=== PATIENT | male | born 1965 | race Caucasian/White ===

== ENCOUNTER 2019-04-03 09:23 | Emergency (ER) | payer MEDICARE, SELFPAY ==
[2019-04-03 09:24] VITALS: BP 169/93; PULSE 83; RESP 17; TEMP 36.5; O2SAT 100
[2019-04-03] MEDS: 0.9% Normal Saline 1,000 ML 1000 ML IV (10:07)
[2019-04-03] MEDS: proMETHazine 25 MG/ML Syringe 6.25 MG IV (10:07)
[2019-04-03] MEDS: HYDROmorphone 1 MG/ML Syringe 0.5 MG IV (10:08)
[2019-04-03 10:34] LABS: Absolute Lymphocyte Count 1.33 X10^3/uL (0.83-4.51); Absolute Neutrophil Count 4.2 X10^3/uL (2.0-7.7); Basophil# 0.05 X10^3/uL; Basophil% 0.8 % (0-1); Eosinophil# 0.18 X10^3/uL; Eosinophils% 2.8 % (0-5); Hemoglobin 12.6 g/dL (13.0-16.5); Lymphocyte # 1.33 X10^3/ul (4.0); Lymphocyte % 20.8 % (19-41); Mean Corp Hgb Conc 33.2 g/dL (32-36); Mean Corpuscular Volume 99.5 fL (80-94); Mean Platelet Vol. 9.9 fl (6.2-12.0); Monocyte# 0.59 X10^3/uL; Monocyte% 9.2 % (0-10); NRBC Flagged by Analyzer 0 % (0-5); Neutrophil # 4.21 X10^3/uL (2.7-7.7); Neutrophil % 66.1 % (47-70); Platelet Count 208 K/mm3 (150-450); RBC Distribution Width CV 12.8 % (11.6-14.6); RBC Distribution Width SD 47.5 fl (35.1-43.9); Red Blood Count 3.82 M/mm3 (4.6-6.2); White Blood Count 6.4 K/mm3 (4.4-11.0)
[2019-04-03 10:37] LABS: AST(SGOT) 22 U/L (15-37); Alanine Aminotransfer ALT/SGPT 27 U/L (16-61); Albumin, Serum 3.7 g/dL (3.2-5.0); Alkaline Phosphatase 88 U/L (45-117); Anion Gap 5 (5-15); BUN 16 mg/dL (7-18); BUN/Creat Ratio 17.6 RATIO (10-20); Calcium,Total 8.5 mg/dL (8.5-10.1); Chloride 106 mmol/L (98-107); Creatinine, Serum 0.91 mg/dL (0.70-1.30); EST Glomerular Filtration Rate 92 mL/min (>60); Est Glom Filt Rate - Afr Amer 112 mL/min (>60); Estimated Creatinine Clearance 85.45 ml/min; Globulin 3.7 g/dL (2.2-4.2); Glucose 113 mg/dL (74-106); Lipase 149 U/L (73-393); Potassium 3.8 mmol/L (3.5-5.1); Protein, Total 7.4 g/dL (6.4-8.2); Sodium Level 139 mmol/L (136-145)
[2019-04-03 10:48] LABS: Lactic Acid 1.6 mmol/L (0.4-2.0)
--- NOTE | 2019-04-03 11:09 | ED.DCSUM_ITS ---
- ER Visit Summary Date of Service: 04/03/19 Chief Complaint: [Abdominal pain] History of Present Illness: The patient is a 54 M [presents to the emergency department complaint of abdominal pain over the last 2 days. Patient describes the pain as sharp and stabbing in the upper abdomen. He has had nausea but no vomiting. Patient was seen in urgent care this morning and was referred to the emergency department. Patient states that he has a history of chronic diarrhea. He denies any blood in his stool or black tarry stools. He denies any fevers. Patient denies any chest pain or shortness of breath. Patient's significant other states that the entire family has had recent illness involving vomiting and diarrhea. Patient had prior appendectomy and cholecystectomy.] Patient has history of remote pancreatitis and chronic abdominal pain. Physical Examination: HEENT-PERRLA, EOMI. Cranial nerves II through XII grossly intact. TMs clear. Mucous membranes moist. No adenopathy. Cardiovascular-regular rate and rhythm without murmur or ectopy Lungs-clear to auscultation, chest wall stable without crepitus or subcu emphysema Abdomen-normoactive bowel sounds, soft. Patient has tenderness palpation diffusely over the epigastric region with some guarding. There is no rebound, rigidity, or perineal signs. There is no distention. Extremities-intact ?4, normal range of motion, normal pulses, atraumatic] Test Results: [CBC with differential obtained showed a normal white count of 6.4, hemoglobin 12.6, hematocrit 38, platelets 208. Chemistries unremarkable. LFTs were normal. Lipase was 149.] Emergency Department Course and Treatment: Patient was given a liter normal same fluid bolus. Patient was given Phenergan 6.25 mill grams IV. Patient was given half a milligram of Dilaudid. He did feel improved. [] Treatment Plan: [Will be given a prescription for Phenergan and advised to push fluids. Patient advised to follow-up with primary care physician in 3 to 5 days. Patient to return if fever, worsening pain, vomiting, or condition should worsen anyway.] Disposition: [Discharged home in stable condition.] Impression: [Abdominal pain-suspect viral etiology] This note was generated with [employer] software. It may contain incorrect words, spelling, and punctuation that were not noted in review of the chart prior to signing ED Disposition - Plan for ED Patient: Referrals: Antonio Lee DO [Primary Care Provider] -
--- NOTE | 2019-04-03 11:12 | ED.DEP ---
ED Disposition - Plan for ED Patient: Instructions: ABDOMINAL PAIN, Unkown Cause, (Male) Prescriptions: proMETHazine tablet [Phenergan] 25 mg PO Q6H PRN PRN #10 tab PRN Reason: Nausea Prescription Printed Referrals: Antonio Lee DO [Primary Care Provider] - 3-5 Days
[2019-04-03 11:19] VITALS: BP 145/89; PULSE 66; RESP 18; O2SAT 98
== END 2019-04-03 11:21 | disposition short-term general hospital (02) ==
LOC: ED 09:38
PROVIDERS: Emergency Provider Emergency Medicine; Family Provider Student in an Organized Health Care Education/Training Program; PCP Student in an Organized Health Care Education/Training Program
DX: R10.9 Unspecified abdominal pain (principal); R11.0 Nausea; G89.29 Other chronic pain; Z90.49 Acquired absence of other specified parts of digestive tract
CPT/HCPCS: 80053; 83605; 83690; 85025; 96361; 96374; 96375; 99284; J7030; A4216

== ENCOUNTER 2022-03-23 10:12 | Emergency (ER) | payer MEDICARE, SELFPAY ==
[2022-03-23 10:13] VITALS: BP 149/106; PULSE 93; RESP 18; TEMP 36.5; O2SAT 100; BMI 15.3
[2022-03-23] MEDS: Ipratropium/Albuterol Sulfate 3 ML AMPUL.NEB INHALATION (10:37)
[2022-03-23 10:40] VITALS: PULSE 82; RESP 24; O2SAT 98
--- NOTE | 2022-03-23 10:41 | EX.ED.DYSGE1 ---
HPI History of Present Illness Chief Complaint: General Illness Narrative Narrative: Patient presents with cough, subjective fevers and chills myalgias and feeling ill for 2 days. No significant difficulty breathing although he has COPD and he has noticed slight wheezing. He has upper airway congestion. No known sick contacts. No nausea vomiting or diarrhea. He is able to eat and drink well. He continues to smoke but quit drinking alcohol. PFSH PFSH Home Medications diphenhydramine HCl 25 mg capsule 25 mg PO BID PRN PRN Allergies 04/03/19 [History Last Taken Unknown] ibuprofen 600 mg tablet 600 mg PO BID PRN Pain Or Fever 04/03/19 [History Last Taken Unknown] promethazine 25 mg tablet 25 mg PO Q6H PRN PRN Nausea #10 tabs 04/03/19 [Rx Last Taken Unknown] albuterol sulfate 90 mcg/actuation aerosol inhaler (Ventolin HFA) 1 - 2 puff inhalation Q4H PRN PRN Wheezing 3 days #1 unit 03/23/22 [Rx Last Taken Unknown] Allergy/AdvReac Type Severity Reaction Status Date / Time codeine Allergy Hives Verified 04/03/19 09:24 dicyclomine [From Bentyl] Allergy Hives Verified 04/03/19 09:24 hydrocodone bitartrate Allergy Hives Verified 04/03/19 09:24 [From Vicodin] morphine Allergy Hives Verified 04/03/19 09:24 ondansetron HCl [From Zofran] Allergy Hives Verified 04/03/19 09:24 Social History Smoking Status: Heavy Smoker (>10/day) ROS ROS ED ROS Narrative Past medical history: Reviewed Medications: Reviewed Social history: Noncontributory Review of systems: All systems negative except as indicated General: Subjective fevers and chills Eyes: No visual changes ENT: Upper airway congestion but normal voice. Able to swallow and drink well Neck: No neck pain Cardiovascular: No chest pain Respiratory: Some wheezing. He has a mostly nonproductive cough Gastrointestinal: No abdominal pain, nausea vomiting or diarrhea Genitourinary: No dysuria Musculoskeletal: Generalized myalgias Skin: No rash Neurological: No memory loss, confusion or any focal weakness Psych: No recent behavioral changes Hematologic: No easy bleeding or easy bruising EXAM Physical Exam Narrative Exam Narrative: Physical exam General: Patient appears somewhat uncomfortable Head: Normocephalic, Atraumatic Eyes: Conjunctiva not pale ENT: Upper airway congestion and rhinorrhea Neck: Supple, Nontender, No lymphadenopathy Cardiovascular: Regular rate, Regular rhythm, no tachycardia. No murmurs. Respiratory: Bilateral end expiratory wheezing. Abdomen: Soft, Nontender, Nondistended Back: Nontender, Normal Inspection. Negative for: CVA tenderness Extremities: Nontender, No edema Skin: Normal color, No rash Neurological: Alert, Normal Strength, Normal Sensation Psychological: Normal affect Const Vital Signs: 03/23/22 10:13 03/23/22 10:37 03/23/22 10:40 Temperature 97.7 F L Temperature Source Temporal Pulse Rate 93 82 Respiratory Rate 18 24 H Respiratory Effort Normal Non-Labored Respiratory Pattern Normal Blood Pressure 149/106 H Blood Pressure Mean 120 Pulse Ox 100 Oxygen Delivery Method Room Air 03/23/22 10:40 Temperature Temperature Source Pulse Rate Respiratory Rate Respiratory Effort Respiratory Pattern Blood Pressure Blood Pressure Mean Pulse Ox 98 Oxygen Delivery Method Room Air MDM MDM Radiography Diagnostic Testing: Chest x-ray two-view read by me shows COPD changes but no obvious pneumonia. Treatment and Re-Evaluation Narrative: Patient's work-up is unremarkable, he does have a viral syndrome clinically, I cannot test for other viruses in this ED, however at this time I do not see any reason for antibiotics clinically. I will discharge him with symptomatic treatment. Discharge Plan Triage Chief Complaint: General Illness ED Provider: Mohamud Goel Dx/Rx/DC Orders Clinical Impression: Upper respiratory disease, COPD (chronic obstructive pulmonary disease) Instructions: Asthma and COPD, Infec Common Resp Prevention Prescriptions: New albuterol sulfate [Ventolin HFA] 90 mcg/actuation HFA aerosol inhaler 1 - 2 puff inhalation Q4H PRN PRN (Reason: Wheezing) 3 Days Qty: 1 0RF No Action diphenhydramine HCl 25 MG capsule 25 mg PO BID PRN PRN (Reason: Allergies) ibuprofen 600 MG tablet 600 mg PO BID PRN (Reason: Pain Or Fever) promethazine 25 MG tablet 25 mg PO Q6H PRN PRN (Reason: Nausea) Qty: 10 0RF Stand Alone Forms: ED Work / School Excuse Primary Care Provider: Antonio Lee Referrals: Antonio Lee, DO [Primary Care Provider] - 2 Days Disposition Disposition: Home, Self Care
--- NOTE | 2022-03-23 10:55 | RAD_ITS ---
STUDY: X-RAY CHEST REASON FOR EXAM: Male, 57 years old. SOB TECHNIQUE: PA and lateral views of the chest. COMPARISON: March 01, 2016 FINDINGS: The lungs are clear and expanded. There is no demonstrated pleural abnormality. Normal size heart. Normal mediastinum and heydi. Normal visualized pulmonary arteries. Normal visualized aortic arch and descending thoracic aorta. Normal visualized thoracic spine. Normal visualized ribs, clavicles, and shoulders. There is no demonstrated abnormality of the visualized soft tissue structures of the upper abdomen. RAD/Chest PA and Lateral IMPRESSION: Normal x-ray examination of the chest. Electronically Signed: Mahendra Torres MD at 11:25 EDT ,
--- NOTE | 2022-03-23 11:25 | EX.ED.DYSGE1 ---
HPI History of Present Illness Chief Complaint: General Illness PFSH PFS Home Medications diphenhydramine HCl 25 mg capsule 25 mg PO BID PRN PRN Allergies 04/03/19 [History Last Taken Unknown] ibuprofen 600 mg tablet 600 mg PO BID PRN Pain Or Fever 04/03/19 [History Last Taken Unknown] promethazine 25 mg tablet 25 mg PO Q6H PRN PRN Nausea #10 tabs 04/03/19 [Rx Last Taken Unknown] albuterol sulfate 90 mcg/actuation aerosol inhaler (Ventolin HFA) 1 - 2 puff inhalation Q4H PRN PRN Wheezing #1 unit 03/23/22 [Rx Last Taken Unknown] albuterol sulfate 90 mcg/actuation aerosol inhaler (Ventolin HFA) 1 - 2 puff inhalation Q4H PRN PRN Wheezing 3 days #1 unit 03/23/22 [Rx Last Taken Unknown] Allergy/AdvReac Type Severity Reaction Status Date / Time codeine Allergy Hives Verified 04/03/19 09:24 dicyclomine [From Bentyl] Allergy Hives Verified 04/03/19 09:24 hydrocodone bitartrate Allergy Hives Verified 04/03/19 09:24 [From Vicodin] morphine Allergy Hives Verified 04/03/19 09:24 ondansetron HCl [From Zofran] Allergy Hives Verified 04/03/19 09:24 Social History Smoking Status: Heavy Smoker (>10/day) EXAM Physical Exam Const Vital Signs: 03/23/22 10:13 03/23/22 10:37 03/23/22 10:40 Temperature 97.7 F L Temperature Source Temporal Pulse Rate 93 82 Respiratory Rate 18 24 H Respiratory Effort Normal Non-Labored Respiratory Pattern Normal Blood Pressure 149/106 H Blood Pressure Mean 120 Pulse Ox 100 Oxygen Delivery Method Room Air 03/23/22 10:40 Temperature Temperature Source Pulse Rate Respiratory Rate Respiratory Effort Respiratory Pattern Blood Pressure Blood Pressure Mean Pulse Ox 98 Oxygen Delivery Method Room Air Discharge Plan Triage Chief Complaint: General Illness ED Provider: Mohamud Goel Dx/Rx/DC Orders Clinical Impression: Upper respiratory disease, COPD (chronic obstructive pulmonary disease) Instructions: Asthma and COPD, Infec Common Resp Prevention Prescriptions: New albuterol sulfate [Ventolin HFA] 90 mcg/actuation HFA aerosol inhaler 1 - 2 puff inhalation Q4H PRN PRN (Reason: Wheezing) 3 Days Qty: 1 0RF albuterol sulfate [Ventolin HFA] 90 mcg/actuation HFA aerosol inhaler 1 - 2 puff inhalation Q4H PRN PRN (Reason: Wheezing) Qty: 1 0RF No Action diphenhydramine HCl 25 MG capsule 25 mg PO BID PRN PRN (Reason: Allergies) ibuprofen 600 MG tablet 600 mg PO BID PRN (Reason: Pain Or Fever) promethazine 25 MG tablet 25 mg PO Q6H PRN PRN (Reason: Nausea) Qty: 10 0RF Stand Alone Forms: ED Work / School Excuse Primary Care Provider: Antonio Lee Referrals: Antonio Lee DO [Primary Care Provider] - 2 Days Disposition Disposition: Home, Self Care
== END 2022-03-23 11:28 | disposition home or self-care (01) ==
LOC: ED 11:25
PROVIDERS: Emergency Provider Emergency Medicine; PCP Student in an Organized Health Care Education/Training Program; Visit Provider Emergency Medicine
DX: J39.9 Disease of upper respiratory tract, unspecified (principal); J44.9 Chronic obstructive pulmonary disease, unspecified; F17.200 Nicotine dependence, unspecified, uncomplicated; Z20.822 Contact with and (suspected) exposure to COVID-19
CPT/HCPCS: 71046; 87428; 94640; 99282

== ENCOUNTER 2022-12-27 09:05 | Emergency (ER) | payer MEDICARE, SELFPAY ==
[2022-12-27 09:06] VITALS: BP 154/86; PULSE 67; RESP 18; TEMP 36.6; O2SAT 100; BMI 19.6
--- NOTE | 2022-12-27 10:03 | RAD_ITS ---
STUDY: X-RAY - RIGHT HAND REASON FOR EXAM: Male, 57 years old. Injury 3rd fingers TECHNIQUE: 3 view(s) of the hand. COMPARISON: None. FINDINGS: Normal radiocarpal articulation. Normal distal radioulnar joint. Normal visualized carpal bones. Normal carpal articulations Normal carpometacarpal articulation of the thumb. Normal second through fifth carpometacarpal joints. Normal metacarpi. Normal metacarpophalangeal joint of the thumb. Normal interphalangeal joint of the thumb. Normal proximal and distal phalanges of the thumb. Normal metacarpophalangeal joints of the second through fifth fingers. Normal proximal and distal interphalangeal joints of the second through fifth fingers. Nondisplaced, fracture of the tuft of the distal phalanx of the third digit. Soft tissue swelling. RAD/Hand Min 3 Views IMPRESSION: Nondisplaced condylar fracture of the tuft of the distal phalanx of the third digit with overlying soft tissue swelling. Electronically Signed: Aditya Elmore MD at 10:54 EDT ,
--- NOTE | 2022-12-27 10:13 | EDS_ITS ---
<Statement entered by Gina Madden MD - 12/27/22 11:36> I have personally performed a face to face assessment of the patient and have reviewed the KIMBERLY Note. Patient presents with injury to the third fingers of each hand. He was working on an engine this morning and had a crush injury to the third finger of each hand. He is right-hand dominant. Patient sitting upright in bed no acute distress. Head and neck examination unremarkable. Heart is regular rate and rhythm. Lung sounds are clear. Right upper extremity examination reveals edema and early ecchymosis to the distal phalanx of the right third finger. Very mild early subungual hematoma noted at this time. Left upper extremity examination reveals mild edema with early ecchymosis to the distal phalanx of the left third finger. Very mild early subungual hematoma noted at this time. Good sensation noted to all fingertips. Good range of motion. Bilateral hand x-rays obtained. Patient has tuft fractures of the bilateral third fingers. AlumaFoam splint placed and patient given analgesics. Referred to orthopedics for follow-up. HPI History of Present Illness Chief Complaint: Upper Extremity Injury Narrative Narrative: Patient presenting today with pain to his bilateral third fingers after a car engine fell on top of his fingers while he was scrapping earlier this morning. He denies any other injury. [facility] Medical History Cholecystectomy planned Home Medications diphenhydramine HCl 25 mg capsule 25 mg PO BID PRN PRN Allergies 04/03/19 [History Last Taken Unknown] ibuprofen 600 mg tablet 600 mg PO BID PRN Pain Or Fever 04/03/19 [History Last Taken Unknown] promethazine 25 mg tablet 25 mg PO Q6H PRN PRN Nausea #10 tabs 04/03/19 [Rx Last Taken Unknown] albuterol sulfate 90 mcg/actuation aerosol inhaler (Ventolin HFA) 1 - 2 puff inhalation Q4H PRN PRN Wheezing #1 unit 03/23/22 [Rx Last Taken Unknown] albuterol sulfate 90 mcg/actuation aerosol inhaler (Ventolin HFA) 1 - 2 puff inhalation Q4H PRN PRN Wheezing 3 days #1 unit 03/23/22 [Rx Last Taken Unknown] oxycodone-acetaminophen 5 mg-325 mg tablet (Percocet) 1 tab PO Q8H PRN pain 3 days #10 tabs 12/27/22 [Rx Last Taken Unknown] Allergy/AdvReac Type Severity Reaction Status Date / Time codeine Allergy Hives Verified 12/27/22 09:06 dicyclomine [From Bentyl] Allergy Hives Verified 12/27/22 09:06 hydrocodone bitartrate Allergy Hives Verified 12/27/22 09:06 [From Vicodin] morphine Allergy Hives Verified 12/27/22 09:06 ondansetron HCl [From Zofran] Allergy Hives Verified 12/27/22 09:06 Surgical History Hx of appendectomy Social History Smoking Status: Heavy Smoker (>10/day) ROS ROS ED Constitutional Constitutional ED: Denies chills or fever(s) Cardiovascular Cardiovascular: Denies chest pain or palpitations Respiratory/Chest Respiratory/Chest: Denies cough or dyspnea Gastrointestinal Gastrointestinal: Denies abdominal pain, nausea or vomiting Musculoskeletal Musculoskeletal: Reports arthralgias; Denies back pain or neck pain Integumentary Denies Abrasions Neurologic Neurologic: Denies paresthesias or weakness EXAM Physical Exam Const Vital Signs: 12/27/22 09:06 Temperature 97.8 F Temperature Source Temporal Pulse Rate 67 Respiratory Rate 18 Blood Pressure 154/86 H Blood Pressure Mean 108 Pulse Ox 100 Oxygen Delivery Method Room Air Positive well nourished, well developed and no apparent distress General Appearance ED: well developed HEENT Reports normocephalic and head/scalp atraumatic Mouth ED: Yes moist mucous membranes normal Eyes PERRL and EOMs intact bilaterally Neck full ROM and supple Chest Wall inspection of chest normal Resp normal respiratory effort and clear to auscultation bilaterally Cardio regular rate and regular rhythm GI soft to palpation, non-tender, non-distended and no masses Back/Spine normal ROM and normal to inspection Extremity Extremity Narrative: Ecchymosis and edema to the bilateral distal third fingers above the DIP joint. Pain to palpation to the distal aspect of the third fingers. Intact range of motion to the MCP and PIP joints but limited range of motion to the DIP joints of the third fingers due to pain. Minimal subungual hematomas to 3rd fingers bilaterally. Radial pulses 2+ and equal bilaterally, good capillary refill, sensation intact. Neuro oriented x3, CN's II-XII intact bilaterally, moves all extremities, no focal motor deficits and no sensory deficits noted Sensorium / Orientation: awake and alert Psych mental status grossly normal and thought process normal Skin no rashes or lesions noted and no wounds MDM MDM MDM Narrative Medical decision making narrative: Patient presenting today after a crush injury occurred to his bilateral middle fingers. He is well-appearing and in no acute distress. The distal aspect of both fingers are edematous and bruised. He will be given pain control. X-ray will be obtained of the right and left hand to rule out fracture. X-rays do show tuft fracture to the bilateral third fingers. He has minimal subungual hematomas to these fingers. He has been given finger splints and a prescription for [place]. He has been given orthopedic follow-up and RICE instructions. He will be discharged home in stable condition and is comfortable with plan. Discharge Plan Triage Chief Complaint: Upper Extremity Injury ED Midlevel Provider: Patti Bone ED Provider: Gina Madden Dx/Rx/DC Orders Clinical Impression: Finger fracture, left, Finger fracture, right Instructions: ED Fracture, Upper Extremity Prescriptions: New oxycodone-acetaminophen [Percocet] 5-325 mg tablet 1 tab PO Q8H PRN (Reason: pain) 3 Days Qty: 10 0RF No Action diphenhydramine HCl 25 MG capsule 25 mg PO BID PRN PRN (Reason: Allergies) ibuprofen 600 MG tablet 600 mg PO BID PRN (Reason: Pain Or Fever) promethazine 25 MG tablet 25 mg PO Q6H PRN PRN (Reason: Nausea) Qty: 10 0RF albuterol sulfate [Ventolin HFA] 90 mcg/actuation HFA aerosol inhaler 1 - 2 puff inhalation Q4H PRN PRN (Reason: Wheezing) 3 Days Qty: 1 0RF albuterol sulfate [Ventolin HFA] 90 mcg/actuation HFA aerosol inhaler 1 - 2 puff inhalation Q4H PRN PRN (Reason: Wheezing) Qty: 1 0RF Primary Care Provider: Antonio Lee Referrals: Antonio Lee DO [Primary Care Provider] - Gary Peñaloza MD [Med Staff - Active Staff] - 5-7 Days Activity Restrictions/Additional Instructions: Ice your finger several times a day for the next few days, keep them elevated, you can also take ibuprofen for your pain. Disposition Disposition: Home, Self Care Discharge Date/Time: 12/27/22 11:39
--- NOTE | 2022-12-27 10:25 | RAD_ITS ---
STUDY: X-RAY - LEFT HAND REASON FOR EXAM: Male, 57 years old. Injury 3rd fingers TECHNIQUE: 3 view(s) of the hand. COMPARISON: None. FINDINGS: Normal radiocarpal articulation. Normal distal radioulnar joint. Normal visualized carpal bones. Normal carpal articulations Normal carpometacarpal articulation of the thumb. Normal second through fifth carpometacarpal joints. Normal metacarpi. Normal metacarpophalangeal joint of the thumb. Normal interphalangeal joint of the thumb. Normal proximal and distal phalanges of the thumb. Normal metacarpophalangeal joints of the second through fifth fingers. Normal proximal and distal interphalangeal joints of the second through fifth fingers. Nondisplaced condylar fracture of the tuft of the distal phalanx of the third digit. Soft tissue swelling. RAD/Hand Min 3 Views IMPRESSION: Nondisplaced fracture at the tuft of the distal phalanx of the third digit with overlying soft tissue swelling. Electronically Signed: Aditya Elmore MD at 10:55 EDT ,
[2022-12-27] MEDS: oxyCODONE 5 MG Tablet PO (10:35)
--- NOTE | 2022-12-27 11:38 | ED.RN ---
Fingers wrapped with metal finger splints applied. Verbalized understanding of instructions.
== END 2022-12-27 11:39 | disposition home or self-care (01) ==
PROVIDERS: Emergency Provider Emergency Medicine; PCP Student in an Organized Health Care Education/Training Program; Visit Provider Emergency Medicine
DX: S62.602A Fracture of unspecified phalanx of right middle finger, initial encounter for closed fracture (principal); F17.200 Nicotine dependence, unspecified, uncomplicated; S62.603A Fracture of unspecified phalanx of left middle finger, initial encounter for closed fracture; X58.XXXA Exposure to other specified factors, initial encounter
CPT/HCPCS: 73130; 99283

== ENCOUNTER 2022-12-27 18:44 | Emergency (ER) | payer MEDICARE, SELFPAY ==
[2022-12-27 18:45] VITALS: BP 161/97; PULSE 74; RESP 18; TEMP 36.6; O2SAT 98; BMI 17.8
--- NOTE | 2022-12-27 19:26 | EX.ED.UPPERE ---
HPI History of Present Illness Chief Complaint: Upper Extremity Injury Narrative Narrative: Patient presenting today with known bilateral third finger tuft fractures from an injury that occurred earlier this morning. He was seen in the ED where x-rays were obtained, he was discharged home with orthopedic follow-up, a prescription for Percocet, and RICE instructions. He reports that since being home he has only taken 1 Percocet, has not been elevating his fingers, and has not iced them. He is in a lot of pain. He denies any other injury or complaint [facility] Medical History Cholecystectomy planned Home Medications diphenhydramine HCl 25 mg capsule 25 mg PO BID PRN PRN Allergies 04/03/19 [History Last Taken Unknown] ibuprofen 600 mg tablet 600 mg PO BID PRN Pain Or Fever 04/03/19 [History Last Taken Unknown] promethazine 25 mg tablet 25 mg PO Q6H PRN PRN Nausea #10 tabs 04/03/19 [Rx Last Taken Unknown] albuterol sulfate 90 mcg/actuation aerosol inhaler (Ventolin HFA) 1 - 2 puff inhalation Q4H PRN PRN Wheezing #1 unit 03/23/22 [Rx Last Taken Unknown] albuterol sulfate 90 mcg/actuation aerosol inhaler (Ventolin HFA) 1 - 2 puff inhalation Q4H PRN PRN Wheezing 3 days #1 unit 03/23/22 [Rx Last Taken Unknown] oxycodone-acetaminophen 5 mg-325 mg tablet (Percocet) 1 tab PO Q8H PRN pain 3 days #10 tabs 12/27/22 [Rx Last Taken Unknown] Allergy/AdvReac Type Severity Reaction Status Date / Time codeine Allergy Hives Verified 12/27/22 18:46 dicyclomine [From Bentyl] Allergy Hives Verified 12/27/22 18:46 hydrocodone bitartrate Allergy Hives Verified 12/27/22 18:46 [From Vicodin] morphine Allergy Hives Verified 12/27/22 18:46 ondansetron HCl [From Zofran] Allergy Hives Verified 12/27/22 18:46 Surgical History Hx of appendectomy Social History Smoking Status: Heavy Smoker (>10/day) ROS ROS ED Constitutional Constitutional ED: Denies chills or fever(s) Cardiovascular Cardiovascular: Denies chest pain or palpitations Respiratory/Chest Respiratory/Chest: Denies cough or dyspnea Gastrointestinal Gastrointestinal: Denies abdominal pain, nausea or vomiting Musculoskeletal Musculoskeletal: Reports arthralgias; Denies myalgias Integumentary Denies Abrasions or rash Neurologic Neurologic: Denies paresthesias or weakness EXAM Physical Exam Const Vital Signs: 12/27/22 18:45 Temperature 98 F Temperature Source Temporal Pulse Rate 74 Respiratory Rate 18 Blood Pressure 161/97 H Blood Pressure Mean 118 Pulse Ox 98 Oxygen Delivery Method Room Air Positive well nourished, well developed and no apparent distress General Appearance ED: well developed HEENT Reports normocephalic and head/scalp atraumatic Mouth ED: Yes moist mucous membranes normal Eyes PERRL and EOMs intact bilaterally Neck full ROM and supple Chest Wall inspection of chest normal Resp normal respiratory effort and clear to auscultation bilaterally Cardio regular rate and regular rhythm GI soft to palpation, non-tender, non-distended and no masses Back/Spine normal ROM and normal to inspection Extremity Extremity Narrative: Patient is in finger splints to his third fingers bilaterally. Neuro oriented x3, CN's II-XII intact bilaterally, moves all extremities, no focal motor deficits and no sensory deficits noted Sensorium / Orientation: awake and alert Psych mental status grossly normal and thought process normal Skin no rashes or lesions noted and no wounds MDM MDM MDM Narrative Medical decision making narrative: Patient presenting with known bilateral third finger tuft fractures. He injured his fingers this morning and I did evaluate him when he came into the ED earlier and ordered x-rays that showed the fractures. I gave him pain control here and discharged him home with Percocet and RICE instructions. I did give him an orthopedic follow-up. Since being home he has only taken 1 Percocet and his reports that he has been sitting with his fingers pointed towards the ground, not elevating them at all. He also reports that he has not iced his fingers at all. I had a long discussion with him about the importance of keeping his fingers elevated, icing them for 10 to 15 minutes at a time several times a day for the next few days, and to take the Percocet every 4-6 hours as needed. He could also take ibuprofen for his pain as he does not have any history of kidney function. He was given Percocet here and ibuprofen. He is understanding of the instructions and will be discharged home in stable condition. He is to follow-up with Ortho. Discharge Plan Triage Chief Complaint: Upper Extremity Injury ED Midlevel Provider: Patti Bone ED Provider: Gina Madden Dx/Rx/DC Orders Clinical Impression: Finger fracture, left, Finger fracture, right Instructions: ED Fracture, Finger, Closed Prescriptions: No Action diphenhydramine HCl 25 MG capsule 25 mg PO BID PRN PRN (Reason: Allergies) ibuprofen 600 MG tablet 600 mg PO BID PRN (Reason: Pain Or Fever) promethazine 25 MG tablet 25 mg PO Q6H PRN PRN (Reason: Nausea) Qty: 10 0RF albuterol sulfate [Ventolin HFA] 90 mcg/actuation HFA aerosol inhaler 1 - 2 puff inhalation Q4H PRN PRN (Reason: Wheezing) 3 Days Qty: 1 0RF albuterol sulfate [Ventolin HFA] 90 mcg/actuation HFA aerosol inhaler 1 - 2 puff inhalation Q4H PRN PRN (Reason: Wheezing) Qty: 1 0RF oxycodone-acetaminophen [Percocet] 5-325 mg tablet 1 tab PO Q8H PRN (Reason: pain) 3 Days Qty: 10 0RF Primary Care Provider: Antonio Lee Referrals: Antonio Lee DO [Primary Care Provider] - Gary Peñaloza MD [Med Staff - Active Staff] - 5-7 Days Activity Restrictions/Additional Instructions: Please follow-up with orthopedics. Begin icing your finger several times a day for the next few days, you can also take ibuprofen for your pain take the pain medicine every 4-6 hours. Keep your fingers elevated. Disposition Disposition: Home, Self Care
[2022-12-27] MEDS: Ibuprofen 200 MG Tablet 400 MG PO (19:44)
[2022-12-27] MEDS: Oxycodone/Apap 5/325 Tablet PO (19:44)
[2022-12-27 19:49] VITALS: RESP 18
== END 2022-12-27 19:50 | disposition home or self-care (01) ==
PROVIDERS: Emergency Provider Emergency Medicine; PCP Student in an Organized Health Care Education/Training Program; Visit Provider Emergency Medicine
DX: S62.602D Fracture of unspecified phalanx of right middle finger, subsequent encounter for fracture with routine healing (principal); F17.200 Nicotine dependence, unspecified, uncomplicated; X58.XXXA Exposure to other specified factors, initial encounter; S62.603D Fracture of unspecified phalanx of left middle finger, subsequent encounter for fracture with routine healing; Z91.199 Patient's noncompliance with other medical treatment and regimen due to unspecified reason
CPT/HCPCS: 99283

== ENCOUNTER 2023-08-01 08:48 | Emergency (ER) | payer OTHER, SELFPAY ==
[2023-08-01 08:50] VITALS: BP 142/96; PULSE 72; RESP 16; TEMP 36.8; O2SAT 99; BMI 19.1
[2023-08-01 08:58] VITALS: BP 134/71; PULSE 78; RESP 16; TEMP 36.9; O2SAT 99
[2023-08-01 09:19] LABS: Absolute Lymphocyte Count 1.85 X10^3/uL (0.83-4.51); Absolute Neutrophil Count 3.8 X10^3/uL (2.0-7.7); Basophil# 0.05 X10^3/uL; Basophil% 0.8 % (0-1); Eosinophil# 0.16 X10^3/uL; Eosinophils% 2.5 % (0-5); Hematocrit 35.3 % (40-54); Lymphocyte # 1.85 X10^3/ul (0.83-4.51); Lymphocyte % 28.5 % (19-41); Mean Corpuscular Hgb 32.6 pg (27.0-32.0); Mean Corpuscular Volume 95.9 fL (80-94); Mean Platelet Vol. 10.3 fl (6.2-12.0); Monocyte# 0.55 X10^3/uL; Monocyte% 8.5 % (0-10); NRBC Flagged by Analyzer 0 % (0-5); Neutrophil # 3.84 X10^3/uL (2.7-7.7); Neutrophil % 59.2 % (47-70); Platelet Count 192 K/mm3 (150-450); RBC Distribution Width CV 12.3 % (11.6-14.6); RBC Distribution Width SD 43.2 fl (35.1-43.9); Red Blood Count 3.68 M/mm3 (4.6-6.2); White Blood Count 6.5 K/mm3 (4.4-11.0)
--- NOTE | 2023-08-01 09:34 | EDS_ITS ---
HPI History of Present Illness Chief Complaint: Edema Narrative Narrative: 58-year-old male with left-sided throat pain. States onset was a couple days ago. He states that his recently recovered from influenza B last week. He states he does not know if he had a fever but he states he is felt rough . He is tolerating his own secretions but does state it hurts to swallow. He has a mild cough but also notes he has COPD and this is chronic. No productive sputum. Patient states he has tried Tylenol and ibuprofen sporadically without any relief. He feels as if his throat is swollen. [facility] Medical History Cholecystectomy planned Home Medications diphenhydramine HCl 25 mg capsule 25 mg PO BID PRN PRN Allergies 04/03/19 [History Last Taken Unknown] ibuprofen 600 mg tablet 600 mg PO BID PRN Pain Or Fever 04/03/19 [History Last Taken Unknown] albuterol sulfate 90 mcg/actuation aerosol inhaler (Ventolin HFA) 1 - 2 puff inhalation Q4H PRN PRN Wheezing 3 days #1 unit 03/23/22 [Rx Last Taken Unknown] Allergy/AdvReac Type Severity Reaction Status Date / Time codeine Allergy Hives Verified 08/01/23 08:49 dicyclomine [From Bentyl] Allergy Hives Verified 08/01/23 08:49 hydrocodone bitartrate Allergy Hives Verified 08/01/23 08:49 [From Vicodin] morphine Allergy Hives Verified 08/01/23 08:49 ondansetron HCl [From Zofran] Allergy Hives Verified 08/01/23 08:49 Surgical History Hx of appendectomy Social History Smoking Status: Heavy Smoker (>10/day) ROS ROS ED Constitutional Constitutional ED: Denies fever(s) Eyes Eyes: Denies change in vision or diplopia ENT ENT ED: Reports sore throat; Denies ear pain Cardiovascular Cardiovascular: Denies chest pain or palpitations Respiratory/Chest Respiratory/Chest: Reports cough; Denies dyspnea or dyspnea on exertion Gastrointestinal Gastrointestinal: Denies abdominal pain, nausea or vomiting Genitourinary Genitourinary ED: Denies dysuria or hematuria Musculoskeletal Musculoskeletal: Denies arthralgias or back pain Integumentary Denies abscess Neurologic Neurologic: Denies headache(s) Psychiatric Psychiatric: Denies anxiety or depression EXAM Physical Exam Const Vital Signs: 08/01/23 08:50 08/01/23 08:54 08/01/23 08:58 Temperature 98.2 F 98.4 F Temperature Source Temporal Temporal Pulse Rate 72 78 Respiratory Rate 16 16 Respiratory Effort Normal Non-Labored Respiratory Pattern Normal Blood Pressure 142/96 H 134/71 H Blood Pressure Mean 111 92 Pulse Ox 99 99 Oxygen Delivery Method Room Air Room Air 08/01/23 09:52 08/01/23 10:49 08/01/23 10:52 Temperature 98.1 F 97.8 F 97.6 F L Temperature Source Temporal Temporal Temporal Pulse Rate 67 78 78 Respiratory Rate 16 16 18 Respiratory Effort Respiratory Pattern Blood Pressure 134/71 H 130/78 H 138/94 H Blood Pressure Mean 92 95 108 Pulse Ox 98 98 96 Oxygen Delivery Method Room Air Room Air Room Air 08/01/23 12:55 Temperature 98.2 F Temperature Source Pulse Rate 79 Respiratory Rate 18 Respiratory Effort Respiratory Pattern Blood Pressure 129/65 H Blood Pressure Mean 86 Pulse Ox 97 Oxygen Delivery Method Positive well nourished General Appearance ED: NAD HEENT Reports moist mucous membranes trauma Mouth ED: Yes lips normal, Yes tongue normal and Yes moist mucous membranes normal Mouth: lips normal and tongue normal Teeth and Gingiva: caries Throat: posterior oropharynx normal Eyes PERRL and EOMs intact bilaterally Neck no lymphadenopathy, supple and no JVD Neck Narrative: No stridor General: normal visual inspection and trachea midline; Negative for anterior neck swelling Cardio regular rate and regular rhythm GI normal to inspection, nondistended, normoactive bowel sounds Extremity General Extremety ED: Negative for edema or tenderness General Extremity: Negative for edema Neuro oriented x3 and CN's II-XII intact bilaterally Sensorium / Orientation: alert Psych mental status grossly normal Skin no rashes or lesions noted MDM MDM MDM Narrative Medical decision making narrative: Patient with sore throat. Is also been exposed to influenza B. No exposure to strep. He has some pain in the left side of the neck however I do not visualize any swelling. There is no stridor. Oropharynx is normal. He does have multiple dental caries although none relatable to his pain. CBC will be obtained to assess white blood cell count, hemoglobin and platelets. BMP to assess renal function electrolytes. Patient medicated with Toradol, Decadron. Since he was exposed influenza I will obtain rapid flu, RSV, COVID. Patient also have rapid strep. Soft tissue neck will be obtained. CBC shows normal white blood cell count of 6.5. Hemoglobin 12.0. Platelets are normal at 192. Renal function electrolytes normal. LFTs are normal. Rapid strep, COVID, RSV, influenza are negative. Patient given Decadron and Toradol IV and he states his symptoms are much better on reevaluation. X-ray soft tissue of the neck is negative for acute abnormality my interpretation. Radiology interprets this and agrees. Since patient is feeling better and his testing is negative ultimately I will discharge him home with return precautions. Tylenol and ibuprofen for pain. Impression: 1. Pharyngitis Lab Data Labs: Laboratory Results - last 24 hr 08/01/23 09:13 WBC 6.5 RBC 3.68 L Hgb 12.0 L Hct 35.3 L MCV 95.9 H MCH 32.6 H MCHC 34.0 RDW Std Deviation 43.2 RDW Coeff of Jerardo 12.3 Plt Count 192 MPV 10.3 Immature Gran % (Auto) 0.500 Neut % (Auto) 59.2 Lymph % (Auto) 28.5 [place] % (Auto) 8.5 Eos % (Auto) 2.5 Baso % (Auto) 0.8 Absolute Neuts (auto) 3.8 Absolute Lymphs (auto) 1.85 Nucleated RBC % 0 Sodium 139 Potassium 3.3 L Chloride 105 Carbon Dioxide 28.0 Anion Gap 6 BUN 9 Creatinine 0.94 Estim Creat Clear Calc 75.29 Est GFR (MDRD) Af Amer 105 Est GFR (MDRD) Non-Af 87 BUN/Creatinine Ratio 9.5 L Glucose 99 Calcium 8.2 L Total Bilirubin 0.40 AST 20 ALT 16 Alkaline Phosphatase 85 Total Protein 6.4 Albumin 3.3 Globulin 3.1 Albumin/Globulin Ratio 1.1 Radiography Diagnostic Testing: Clinical Impression(s) from Imaging Studies Soft Tissue Neck X-Ray 08/01/23 09:45 IMPRESSION: Unremarkable airway as seen on this examination. Electronically Signed: Hai Hyman MD at 10:04 EST , Discharge Plan Triage Chief Complaint: Edema ED Provider: Jak Eubanks Dx/Rx/DC Orders Instructions: ED Pharyngitis, Viral Prescriptions: No Action diphenhydramine HCl 25 MG capsule 25 mg PO BID PRN PRN (Reason: Allergies) ibuprofen 600 MG tablet 600 mg PO BID PRN (Reason: Pain Or Fever) albuterol sulfate [Ventolin HFA] 90 mcg/actuation HFA aerosol inhaler 1 - 2 puff inhalation Q4H PRN PRN (Reason: Wheezing) 3 Days Qty: 1 0RF Primary Care Provider: Antonio Lee Referrals: Antonio Lee DO [Primary Care Provider] - Disposition Disposition: Home, Self Care Discharge Date/Time: 08/01/23 12:56
[2023-08-01 09:36] LABS: ALB/GLOB Ratio 1.1 RATIO (0.9-2.4); AST(SGOT) 20 U/L (15-37); Alanine Aminotransfer ALT/SGPT 16 U/L (16-61); Albumin, Serum 3.3 g/dL (3.2-5.0); Alkaline Phosphatase 85 U/L (45-117); Anion Gap 6 (5-15); BUN 9 mg/dL (7-18); BUN/Creat Ratio 9.5 RATIO (10-20); Calcium,Total 8.2 mg/dL (8.5-10.1); Chloride 105 mmol/L (98-107); Creatinine, Serum 0.94 mg/dL (0.70-1.30); EST Glomerular Filtration Rate 87 mL/min (>60); Est Glom Filt Rate - Afr Amer 105 mL/min (>60); Estimated Creatinine Clearance 75.29 ml/min; Globulin 3.1 g/dL (2.2-4.2); Glucose 99 mg/dL (74-106); Potassium 3.3 mmol/L (3.5-5.1); Protein, Total 6.4 g/dL (6.4-8.2); Sodium Level 139 mmol/L (136-145)
--- NOTE | 2023-08-01 09:45 | RAD_ITS ---
INDICATION: neck pain EXAMINATION/TECHNIQUE: X-RAY - XR Neck Soft Tissue COMPARISON: No relevant prior comparison study available FINDINGS: SOFT TISSUES: Unremarkable. No radiopaque foreign body. EPIGLOTTIS: No pathologic thickening or enlargement. PROXIMAL AIRWAY: Grossly patent. RAD/Neck for Soft Tissue IMPRESSION: Unremarkable airway as seen on this examination. Electronically Signed: Hai Hyman MD at 10:04 EST ,
[2023-08-01 09:52] VITALS: BP 134/71; PULSE 67; RESP 16; TEMP 36.7; O2SAT 98
[2023-08-01] MEDS: dexAMETHasone 10 MG/ML Vial IV (10:04)
[2023-08-01 10:49] VITALS: BP 130/78; PULSE 78; RESP 16; TEMP 36.6; O2SAT 98
[2023-08-01 10:52] VITALS: BP 138/94; PULSE 78; RESP 18; TEMP 36.4; O2SAT 96
[2023-08-01 12:55] VITALS: BP 129/65; PULSE 79; RESP 18; TEMP 36.8; O2SAT 97
== END 2023-08-01 12:56 | disposition home or self-care (01) ==
PROVIDERS: Emergency Provider Student in an Organized Health Care Education/Training Program; PCP Student in an Organized Health Care Education/Training Program; Visit Provider Student in an Organized Health Care Education/Training Program
DX: J02.9 Acute pharyngitis, unspecified (principal); J44.9 Chronic obstructive pulmonary disease, unspecified; K02.9 Dental caries, unspecified; R60.9 Edema, unspecified; F17.200 Nicotine dependence, unspecified, uncomplicated
CPT/HCPCS: 70360; 80053; 85025; 87631; 87651; 96374; 99283; A4216